=== PATIENT | female | born 1985 | race Caucasian/White ===

== ENCOUNTER → 2016-08-15 | Day surgery (SDC) | payer OTHER ==
[~2016-08-15] VITALS: Ht 172.7 cm; Wt 99.8 kg
[~2016-08-15] MED LIST: GLYCOPYRROLATE INJ 0.2 MG/ML 2 ML VIAL As Ordered ONE; IBUPROFEN 600 MG TAB PO PRN; KETOROLAC 60 MG/2 ML VIAL (J1885) As Ordered ONE; LABETALOL HCL 100 MG/20 ML VIAL As Ordered ONE; LIDOCAINE 2% INJ 100 MG/5 ML SDV (FOR ANES.) As Ordered ONE; LR 1,000 ML IV SCH; MIDAZOLAM INJ 2 MG/2 ML VIAL (J2250) As Ordered ONE; NEOSTIGMINE 1MG/ML 5 ML SYRINGE (J2710) As Ordered ONE; NORCO, ANEXSIA 5/325MG TABLET (HYDROcodone/ACETAMINOPHEN) PO PRN; ONDANSETRON 4MG/2ML VIAL (J2405) As Ordered ONE; ONDANSETRON 4MG/2ML VIAL (J2405) IV PRN; PERCOCET 5MG/325MG TAB PO PRN; PROPOFOL 200 MG/20 ML VIAL As Ordered ONE; ROCURONIUM BROMIDE 50 MG/5 ML VIAL As Ordered ONE; dexameTHASONE 4 MG/ML 1ML VIAL (J1100) As Ordered ONE; fentaNYL 100 MCG/2 ML INJECTION (J3010) IV PRN; fentaNYL 250 MCG/5 ML INJECTION (J3010) As Ordered ONE
[2016-08-15 10:03] LABS: CONTROL LINE HCG INT CTR LINE PRESENT
[2016-08-15 13:55] VITALS: BP 133/62
--- NOTE | 2016-08-15 18:18 | RO ---
DATE OF PROCEDURE: 08/15/2016 PREOPERATIVE DIAGNOSIS: Desire for permanent sterilization. POSTOPERATIVE DIAGNOSIS: Desire for permanent sterilization. PROCEDURE: Laparoscopic bilateral tubal ligation. SURGEON: Dr. Gricelda Anguiano TABLET TECHNICIAN: ANESTHESIA: General endotracheal anesthesia. DESCRIPTION OF PROCEDURE: Mauricio was brought to the operating room where sufficient general endotracheal anesthesia was induced. She was prepped, draped and positioned in the usual sterile fashion with uterine manipulator placed after the uterus had been sounded to 7. The uterus is difficult to access somewhat but this is not surprising given the patient's parody. Attention was then turned to the abdomen. A transverse semilunar incision was made below the umbilicus along the line of her previous laparoscopic scar and sharp and blunt dissection were continued through the subcutaneous tissues to the level of the rectus fascia, which was elevated with Shannan clamps, transversely incised, secured with #0 Vicryl retention sutures. Then, the S retractors used to enter the peritoneal cavity under direct visualization in an open laparoscopic technique. The Markie cannula was then placed, secured with the #0 Vicryl retention sutures and CO2 insufflation then begun. After adequate CO2 insufflation, the peritoneal cavity was visualized. Trendelenburg was needed to create an adequate window. The patient does not have a lot of laxity of the tissues of the lower abdomen. She had a normal appearing uterus, normal fallopian tubes. There were pamela on the left side consistent with her previous cystectomy, and we were careful to avoid transmission of the cautery to those and aware to keep the redundant tissue of the ovary folded up under that to create an additional spacer to the intestines to minimize the risk of transmission of the cautery and, of course, it uses bipolar, so this was distant from the cautery and should not have been an issue, but we still folded over that tissue just in case there were any malfunctions. We also used Trendelenburg to minimize the proximity of the tissues even though this patient had a little bit tighter spacer than some. We were able to readily identify the tubes and fimbria and working proximally to the uterus and the isthmic portion of the tube, three separate locations were cauterized with the bipolar cautery and there was no evidence of mishap or progression of cautery out towards the pamela or any difficulty in that regard. Both sides were cauterized and photographs taken to document this. The rest of the abdomen was visualized as well. Photographs taken to document that. She does have some evidence of fatty liver and otherwise no significant changes. You will see in the pictures that some of the cautery did transmit a little to the peritoneum anteriorly. This was well away from bladder and, again, was in an effort to maintain as much distance as I could keep from the intestine there. And there did not appear to be any significant injury, just a shift with breathing. After the cautery of both tubes and the documentation and visual inspection, we re-inspected the pelvis and, again, confirmed no evidence of difficulty and good result of the bilateral tubal ligation and the procedure was then ended with the CO2 allowed to escape the abdomen. The fascial wound closed with the #0 Vicryl retention suture and #3-0 Vicryl used on the skin and a dry sterile dressing then applied. Estimated blood loss for the procedure was maybe 3 mL. Fluid replacement was crystalloid. Complications: None. Condition and Disposition: Mauricio tolerated the procedure well and was recovering in the recovery room in good condition.
== END | disposition home or self-care (01) ==
LOC: M SDC 09:06
PROVIDERS: ATTEND Obstetrics & Gynecology
DX: Z30.2 Encounter for sterilization (principal)
CPT/HCPCS: 36415; 58670; 84703; J1100; J1885; J2250; J2405; J2710; J3010

== ENCOUNTER → 2021-06-09 | Outpatient (REF) | LOC: M LABSMTC 10:34 | PROVIDERS: ATTEND Pediatrics | DX: Z20.822 Contact with and (suspected) exposure to COVID-19 (principal) ==

== ENCOUNTER 2022-07-23 20:03 | Emergency (ER) | payer OTHER ==
[~2022-07-23] VITALS: Ht 172.7 cm; Wt 96.8 kg
[2022-07-24 00:34] LABS: BASO # 0.1 10^3/uL (0.0-0.2); BASO % 0.4 % (0.0-1.0); EOS # 0.3 10^3/uL (0.0-0.5); EOS % 2.7 % (0.0-3.0); HEMATOCRIT 41.3 % (36.0-47.0); HEMOGLOBIN 13.5 g/dl (12.0-15.5); LYMPH # 2.9 10^3/uL (1.5-5.0); LYMPH % 24.7 % (24.0-44.0); MEAN CORPUSCULAR HEMOGLOBIN 27.3 pg (27.0-33.0); MEAN CORPUSCULAR HGB CONC 32.7 g/dl (32.0-36.5); MEAN CORPUSCULAR VOLUME 83.6 fl (80.0-96.0); MONO # 0.7 10^3/uL (0.0-0.8); MONO % 6.1 % (2.0-8.0); NEUTROPHILS # 7.6 10^3/uL (1.5-8.5); NEUTROPHILS % 65.4 % (36.0-66.0); PLATELET COUNT, AUTOMATED 282 10^3/uL (150-450); RED BLOOD COUNT 4.94 10^6/uL (4.00-5.40); WHITE BLOOD COUNT 11.6 10^3/uL (4.0-10.0)
[2022-07-24 01:21] LABS: BLOOD UREA NITROGEN 9 MG/DL (9-23); CALCIUM LEVEL 8.7 MG/DL (8.5-10.1); CARBON DIOXIDE LEVEL 24 MMOL/L (20-31); CHLORIDE LEVEL 109 MMOL/L (98-107); CREATININE FOR GFR 0.73 MG/DL (0.55-1.30); GLOMERULAR FILTRATION RATE > 60.0 (>60); GLUCOSE, FASTING 86 MG/DL (60-100); POTASSIUM SERUM 3.8 MMOL/L (3.5-5.1); SODIUM LEVEL 140 MMOL/L (136-145)
[2022-07-24] MEDS ORDERED: KETOROLAC TROMETHAMINE 10 MG TAB PO ONE (04:30)
[2022-07-24] MEDS ORDERED: CEPHALEXIN 500 MG CAP PO ONE (06:05)
[2022-07-24] MEDS ORDERED: KETO10TAB PO ×2 (06:07→07:09)
[2022-07-24] MEDS ORDERED: CEPH500C PO ×2 (06:07→07:09)
[2022-07-24 07:15] VITALS: BP 136/72
== END 2022-07-24 07:17 | disposition home or self-care (01) ==
LOC: M ED 20:03
DX: R10.9 Unspecified abdominal pain (principal); E11.9 Type 2 diabetes mellitus without complications; I10 Essential (primary) hypertension; I25.2 Old myocardial infarction; F12.10 Cannabis abuse, uncomplicated; Z86.79 Personal history of other diseases of the circulatory system; Z79.84 Long term (current) use of oral hypoglycemic drugs; Z79.2 Long term (current) use of antibiotics; Z79.1 Long term (current) use of non-steroidal anti-inflammatories (NSAID)

== ENCOUNTER → 2022-12-06 | Outpatient (CLI) | payer OTHER ==
[~2022-12-06] MED LIST changes: +CEPH500C PO; -GLYCOPYRROLATE INJ 0.2 MG/ML 2 ML VIAL As Ordered ONE; -IBUPROFEN 600 MG TAB PO PRN; +KETO10TAB PO; -KETOROLAC 60 MG/2 ML VIAL (J1885) As Ordered ONE; -LABETALOL HCL 100 MG/20 ML VIAL As Ordered ONE; -LIDOCAINE 2% INJ 100 MG/5 ML SDV (FOR ANES.) As Ordered ONE; -LR 1,000 ML IV SCH; -MIDAZOLAM INJ 2 MG/2 ML VIAL (J2250) As Ordered ONE; -NEOSTIGMINE 1MG/ML 5 ML SYRINGE (J2710) As Ordered ONE; -NORCO, ANEXSIA 5/325MG TABLET (HYDROcodone/ACETAMINOPHEN) PO PRN; -ONDANSETRON 4MG/2ML VIAL (J2405) As Ordered ONE; -ONDANSETRON 4MG/2ML VIAL (J2405) IV PRN; -PERCOCET 5MG/325MG TAB PO PRN; -PROPOFOL 200 MG/20 ML VIAL As Ordered ONE; -ROCURONIUM BROMIDE 50 MG/5 ML VIAL As Ordered ONE; -dexameTHASONE 4 MG/ML 1ML VIAL (J1100) As Ordered ONE; -fentaNYL 100 MCG/2 ML INJECTION (J3010) IV PRN; -fentaNYL 250 MCG/5 ML INJECTION (J3010) As Ordered ONE
== END ==
LOC: M WHC 09:57
PROVIDERS: ATTEND Nurse Practitioner Family
DX: N83.291 Other ovarian cyst, right side (principal)

== ENCOUNTER 2023-03-27 14:31 | Emergency (ER) | payer OTHER ==
[~2023-03-27] VITALS: Ht 172.7 cm; Wt 97.3 kg
[2023-03-27] MEDS ORDERED: METO1TAB32 (15:23)
[2023-03-27] MEDS ORDERED: LEVO112T2 (15:23)
[2023-03-27] MEDS ORDERED: CLOP75TA2 (15:23)
[2023-03-27] MEDS ORDERED: GLIP10TA6 (15:23)
[2023-03-27] MEDS ORDERED: ATOR40TA75 (15:23)
[2023-03-27] MEDS ORDERED: LANTINJ4 (15:23)
[2023-03-27] MEDS ORDERED: TOPI100T9 (15:23)
[2023-03-27] MEDS ORDERED: EZET10TA21 (15:23)
[2023-03-27] MEDS ORDERED: BUSP5TA (15:23)
[2023-03-27] MEDS ORDERED: METF-838 (15:23)
[2023-03-27] MEDS ORDERED: ARIP1TAB6 (15:23)
[2023-03-27] MEDS ORDERED: SERT50TA29 (15:23)
[2023-03-27] MEDS ORDERED: TRUL0.5I (15:23)
[2023-03-27] MEDS ORDERED: ASPI1CHW2 (15:23)
[2023-03-27] MEDS ORDERED: TRAZ-252 (15:23)
[2023-03-27 16:50] VITALS: BP 138/79; TEMP 97.1; O2SAT 100
== END 2023-03-27 17:07 | disposition home or self-care (01) ==
LOC: EDBD 14:31 → M ED 14:31
DX: S16.1XXA Strain of muscle, fascia and tendon at neck level, initial encounter (principal); S40.012A Contusion of left shoulder, initial encounter; V49.40XA Driver injured in collision with unspecified motor vehicles in traffic accident, initial encounter; F31.9 Bipolar disorder, unspecified; F41.9 Anxiety disorder, unspecified; I10 Essential (primary) hypertension; Z86.79 Personal history of other diseases of the circulatory system; Z79.01 Long term (current) use of anticoagulants; Z79.02 Long term (current) use of antithrombotics/antiplatelets; Z79.82 Long term (current) use of aspirin; Z79.4 Long term (current) use of insulin; Z79.899 Other long term (current) drug therapy

== ENCOUNTER 2023-11-03 09:56 | Emergency (ER) | payer OTHER ==
[~2023-11-03] VITALS: Ht 172.7 cm; Wt 94.2 kg
[~2023-11-03 09:56] MED LIST changes: +ARIP1TAB6; +ASPI1CHW2; +ATOR40TA75; +BUSP5TA; +CLOP75TA2; +EZET10TA21; +GLIP10TA6; +LANTINJ4; +LEVO112T2; +METF-838; +METO1TAB32; +SERT50TA29; +TOPI100T9; +TRAZ-252; +TRUL0.5I
[2023-11-03 12:47] VITALS: BP 125/89; TEMP 98.1; O2SAT 100
[2023-11-03] MEDS: TAMSULOSIN 0.4 MG CAP PO ONE (13:36)
[2023-11-03] MEDS: NS 1,000 ML IV ONE (13:36)
[2023-11-03] MEDS: cefTRIAXone SOD 2 GM in D5W MINI-BAG PLUS 50 ML IV ONE (13:36)
[2023-11-03] MEDS: MORPHINE 4 MG/ML 1ML VIAL IV ONE (13:37)
[2023-11-03] MEDS ORDERED: CEPH500C PO (15:05)
[2023-11-03] MEDS ORDERED: FLOM0.4C39 PO (15:07)
== END 2023-11-03 15:16 | disposition home or self-care (01) ==
LOC: M ED 09:56
DX: N30.01 Acute cystitis with hematuria (principal); N21.0 Calculus in bladder; N80.9 Endometriosis, unspecified; E11.9 Type 2 diabetes mellitus without complications; I25.2 Old myocardial infarction; E28.2 Polycystic ovarian syndrome; Z79.82 Long term (current) use of aspirin; Z79.02 Long term (current) use of antithrombotics/antiplatelets; Z79.4 Long term (current) use of insulin; Z79.899 Other long term (current) drug therapy; Z86.79 Personal history of other diseases of the circulatory system
CPT/HCPCS: 74176; 80047; 81001; 87086; 96365; 96375; 99284; J0696

== ENCOUNTER → 2024-03-24 | Outpatient (REF) ==
[~2024-03-24] MED LIST changes: +FLOM0.4C39 PO; +GLIP10TA15; -GLIP10TA6
== END ==
LOC: M PLAIMG 10:39
PROVIDERS: ATTEND Internal Medicine
DX: M54.50 Low back pain, unspecified (principal)

== ENCOUNTER → 2024-05-27 | Outpatient (CLI) | payer OTHER ==
[~2024-05-27] MED LIST changes: +PROHANCE 279.3MG/ML 15ML VIAL ONE; +PROHANCE 279.3MG/ML 5ML VIAL ONE
== END ==
LOC: M PLAIMG 08:14
PROVIDERS: ATTEND Student in an Organized Health Care Education/Training Program
DX: G43.019 Migraine without aura, intractable, without status migrainosus (principal); R90.82 White matter disease, unspecified
CPT/HCPCS: 70553; A9576

== ENCOUNTER 2024-12-30 08:25 | Day surgery (SDC) | payer OTHER ==
[~2024-12-30] VITALS: Ht 172.7 cm; Wt 89.4 kg
[~2024-12-30 08:25] MED LIST changes: +ACUL0.5S OS; -ASPI1CHW2; +ASPI1CHW2 PO; -ATOR40TA75; +ATOR40TA75 PO; +BUPR150T12 PO; -BUSP5TA; +BUSP5TA PO; -CLOP75TA2; +CLOP75TA2 PO; +CYCLOPENTOLATE 1% OPHTH SOLN 2 ML BTL OS SCH; -EZET10TA21; +EZET10TA21 PO; -FLOM0.4C39 PO; -GLIP10TA15; +GLIP10TA15 PO; -LANTINJ4; +LANTINJ4 SC; +LIDOCAINE 3.5% 1 ML OPHTH TOPICAL GEL OU ONE; -METF-838; +METF-838 PO; +METO1TAB32 PO; +OFLO5DRO OS; +OFLOXACIN 0.3 % (OCUFLOX) OPTH SOL 5ML OS ONE; +PHENYLEPHRINE 10% OPHTH SOL 5ML OS PRN; +PHENYLEPHRINE 2.5% OPHTH SOL 2ML OS SCH; -PROHANCE 279.3MG/ML 15ML VIAL ONE; -PROHANCE 279.3MG/ML 5ML VIAL ONE; +SYNT137T7 PO; +TAMS-18 PO; +TOPI-257 PO; -TOPI100T9; +TROPICAMIDE 1% OPHTH SOLN 15ML OS SCH
[2024-12-30] MEDS ORDERED: MIDAZOLAM INJ 2 MG/2 ML VIAL As Ordered ONE (08:56)
[2024-12-30] MEDS ORDERED: DEXTROSE 50% 50 ML SYRINGE IV PRN (10:00)
[2024-12-30] MEDS ORDERED: GLUCAGON INJ 1 MG VIAL SC PRN (10:00)
[2024-12-30] MEDS ORDERED: GLUCOSE 4 GM CHEW PO PRN (10:00)
[2024-12-30] MEDS: INSULIN LISPRO (NovoLOG) PER UNIT SC PRN (10:06)
[2024-12-30] MEDS: BSS IRRIG/VANCO(10MG)/TOBRA(5MG)/EPINEPH(1:1000-0.5CC)500ML BAG-ORONLY As Ordered ONE (10:26)
[2024-12-30] MEDS: LIDOCAINE 1% SDV 5 ML VIAL As Ordered ONE (10:26)
[2024-12-30] MEDS: CEFUROXIME 1 MG/0.1 ML INTRACAMERAL INJ As Ordered ONE (10:26)
[2024-12-30 10:35] VITALS: BP 121/78; TEMP 97.2; O2SAT 98
== END 2024-12-30 10:48 | disposition home or self-care (01) ==
LOC: M SDC 08:25
PROVIDERS: ATTEND Ophthalmology
DX: E11.36 Type 2 diabetes mellitus with diabetic cataract (principal); H25.12 Age-related nuclear cataract, left eye; I10 Essential (primary) hypertension; I25.2 Old myocardial infarction; E78.00 Pure hypercholesterolemia, unspecified; E03.9 Hypothyroidism, unspecified; Z79.899 Other long term (current) drug therapy; Z79.82 Long term (current) use of aspirin; Z79.02 Long term (current) use of antithrombotics/antiplatelets; Z79.84 Long term (current) use of oral hypoglycemic drugs; Z79.4 Long term (current) use of insulin; Z91.013 Allergy to seafood; Z88.8 Allergy status to other drugs, medicaments and biological substances; Z95.5 Presence of coronary angioplasty implant and graft; Z95.1 Presence of aortocoronary bypass graft; G43.909 Migraine, unspecified, not intractable, without status migrainosus; F41.9 Anxiety disorder, unspecified; F32.A Depression, unspecified; Z79.890 Hormone replacement therapy
CPT/HCPCS: 66984; J0697; J1815; J2250; J3010; V2632

== ENCOUNTER 2025-01-06 08:20 | Day surgery (SDC) | payer OTHER ==
[~2025-01-06] VITALS: Ht 172.7 cm; Wt 89.8 kg
[~2025-01-06 08:20] MED LIST changes: -CYCLOPENTOLATE 1% OPHTH SOLN 2 ML BTL OS SCH; -LIDOCAINE 3.5% 1 ML OPHTH TOPICAL GEL OU ONE; +MIDAZOLAM INJ 2 MG/2 ML VIAL As Ordered ONE; -OFLOXACIN 0.3 % (OCUFLOX) OPTH SOL 5ML OS ONE; +PHENYLEPHRINE 10% OPHTH SOL 5ML OD PRN; -PHENYLEPHRINE 10% OPHTH SOL 5ML OS PRN; -PHENYLEPHRINE 2.5% OPHTH SOL 2ML OS SCH; -TROPICAMIDE 1% OPHTH SOLN 15ML OS SCH
[2025-01-06] MEDS: OFLOXACIN 0.3 % (OCUFLOX) OPTH SOL 5ML OD ONE (09:00)
[2025-01-06] MEDS: LIDOCAINE 3.5% 1 ML OPHTH TOPICAL GEL OU ONE (09:00)
[2025-01-06] MEDS ORDERED: GLUCOSE 4 GM CHEW PO PRN (09:15)
[2025-01-06] MEDS ORDERED: GLUCAGON INJ 1 MG VIAL SC PRN (09:15)
[2025-01-06] MEDS ORDERED: DEXTROSE 50% 50 ML SYRINGE IV PRN (09:15)
[2025-01-06] MEDS: CYCLOPENTOLATE 1% OPHTH SOLN 2 ML BTL OD SCH (09:29)
[2025-01-06] MEDS: TROPICAMIDE 1% OPHTH SOLN 15ML OD SCH (09:30)
[2025-01-06] MEDS: PHENYLEPHRINE 2.5% OPHTH SOL 2ML OD SCH (09:30)
[2025-01-06] MEDS: INSULIN LISPRO (NovoLOG) PER UNIT SC PRN (09:34)
[2025-01-06] MEDS: LIDOCAINE 1% SDV 5 ML VIAL As Ordered ONE (09:53)
[2025-01-06] MEDS: CEFUROXIME 1 MG/0.1 ML INTRACAMERAL INJ As Ordered ONE (09:53)
[2025-01-06] MEDS: BSS IRRIG/VANCO(10MG)/TOBRA(5MG)/EPINEPH(1:1000-0.5CC)500ML BAG-ORONLY As Ordered ONE (09:53)
[2025-01-06 10:06] VITALS: BP 114/67; TEMP 97.5; O2SAT 96
[2025-01-06] MEDS: INSULIN LISPRO (NovoLOG) PER UNIT SC ONE (10:34)
== END 2025-01-06 10:36 | disposition home or self-care (01) ==
LOC: M SDC 08:20
PROVIDERS: ATTEND Ophthalmology
DX: E11.36 Type 2 diabetes mellitus with diabetic cataract (principal); H25.11 Age-related nuclear cataract, right eye; I10 Essential (primary) hypertension; I25.2 Old myocardial infarction; E03.9 Hypothyroidism, unspecified; E78.00 Pure hypercholesterolemia, unspecified; Z79.899 Other long term (current) drug therapy; Z79.82 Long term (current) use of aspirin; Z79.02 Long term (current) use of antithrombotics/antiplatelets; Z79.84 Long term (current) use of oral hypoglycemic drugs; Z79.890 Hormone replacement therapy; Z95.1 Presence of aortocoronary bypass graft; Z95.5 Presence of coronary angioplasty implant and graft; Z98.42 Cataract extraction status, left eye; F17.290 Nicotine dependence, other tobacco product, uncomplicated; Z91.013 Allergy to seafood; Z88.8 Allergy status to other drugs, medicaments and biological substances
CPT/HCPCS: 66984; J0697; J1815; J2250; J3010; V2632